=== PATIENT | female | born 2000 | race Caucasian/White ===

== ENCOUNTER 2021-01-18 10:19 | Emergency (ER) | payer OTHER ==
[~2021-01-18] VITALS: Ht 154.9 cm; Wt 63.5 kg
--- NOTE | 2021-01-18 10:52 | NUR ---
PT AMBULATORY TO ROOM FROM TRIAGE WITH UPRIGHT STEADY GAIT. PT CHANGED INTO GOWN. MONITORS IN PLACE. CALL LIGHT WITHIN REACH. MOM AT
[2021-01-18 11:38] LABS: MICROSCOPIC AUTO
[2021-01-18 11:40] LABS: BASOPHILS % (AUTO) 1 % (0-1); EOSINOPHILS % (AUTO) 1 % (1-7); LYMPHOCYTES % (AUTO) 36 % (22-44); MEAN CORPUSCULAR HEMOGLOBIN 29.7 pg (27.0-34.8); MEAN CORPUSCULAR HGB CONC 33.4 g/dL (32.4-35.8); MEAN PLATELET VOLUME 7.9 fL (7.4-10.4); MONOCYTES % (AUTO) 7 % (2-9); NEUTROPHILS % (AUTO) 56 % (42-75); PLATELET COUNT 370 x10^3/uL (130-400); RED BLOOD COUNT 4.62 x10^6/uL (3.82-5.3); RED CELL DISTRIBUTION WIDTH 14.1 % (9.6-15.2)
[2021-01-18 11:45] LABS: ALANINE AMINOTRANSFERASE 35 U/L (12-78); ALBUMIN 3.7 g/dL (3.4-5.0); ANION GAP 7 mmol/L (5-15); CALCIUM 8.8 mg/dL (8.5-10.1); CHLORIDE 109 mmol/L (98-107)
[2021-01-18 11:50] LABS: ALKALINE PHOSPHATASE 116 U/L (45-117); BILIRUBIN,TOTAL 0.7 mg/dL (0.2-1.0); CREATININE 0.62 mg/dL (0.55-1.02); TOTAL PROTEIN 7.4 g/dL (6.4-8.2)
--- NOTE | 2021-01-18 11:56 | NUR ---
TASK RN: PT TRANSPORTED TO XRAY.
[2021-01-18 12:45] VITALS: BP 128/70
--- NOTE | 2021-01-18 12:47 | NUR ---
PT TO CT
[2021-01-18] MEDS ORDERED: OMNIPAQUE 350 MG/ML, 100ML BOTTLE ONE (13:00)
[2021-01-18] MEDS ORDERED: SODIUM CHLORIDE FLUSH 10ML SYR IVF ONE (13:00)
--- NOTE | 2021-01-18 13:00 | NUR ---
PT BACK FROM CT, CONNECTED TO MONITORS. CALL LIGHT WITHIN REACH
--- NOTE | 2021-01-18 13:42 | NUR ---
Patient/Caregiver given discharge instructions and RX, they have confirmed that they understand the instructions. Patient ambulatory with steady gait.
== END 2021-01-18 13:54 | disposition home or self-care (01) ==
LOC: ED 13:48
DX: R10.11 Right upper quadrant pain (principal); R10.31 Right lower quadrant pain; R11.2 Nausea with vomiting, unspecified; Z90.49 Acquired absence of other specified parts of digestive tract
CPT/HCPCS: 36415; 74021; 74177; 76700; 80053; 81001; 84703; 85025; 87086; 99285; Q9967; 99284

== ENCOUNTER 2021-01-30 10:41 | Emergency (ER) | payer OTHER ==
[~2021-01-30] VITALS: Ht 154.9 cm; Wt 64.5 kg
--- NOTE | 2021-01-30 11:34 | NUR ---
TRACK MAN: PT TO ROOM FROM [facility]IC[facility] ROSSI. PT TO BR TO ATTEMPT TO PROVIDE URINE SPECIMAN.
--- NOTE | 2021-01-30 11:48 | NUR ---
PT PROVIDED URINE SAMPLE. UA ORDERED PER PROTOCOL AND SENT TO LAB.
[2021-01-30 12:06] LABS: MICROSCOPIC INDICATED
[2021-01-30] MEDS ORDERED: KETOROLAC 30 MG/1 ML ONE (12:13)
--- NOTE | 2021-01-30 12:16 | NUR ---
MEDS ADMIN PER SEP.
[2021-01-30] MEDS ORDERED: KETOROLAC 30 MG/1 ML IM ONE (12:30)
[2021-01-30 12:38] LABS: BASOPHILS % (AUTO) 0 % (0-1); EOSINOPHILS % (AUTO) 2 % (1-7); LYMPHOCYTES % (AUTO) 25 % (22-44); MEAN CORPUSCULAR HEMOGLOBIN 29.8 pg (27.0-34.8); MEAN CORPUSCULAR HGB CONC 33.5 g/dL (32.4-35.8); MEAN PLATELET VOLUME 7.7 fL (7.4-10.4); MONOCYTES % (AUTO) 5 % (2-9); NEUTROPHILS % (AUTO) 68 % (42-75); PLATELET COUNT 320 x10^3/uL (130-400); RED BLOOD COUNT 4.31 x10^6/uL (3.82-5.3); RED CELL DISTRIBUTION WIDTH 14.4 % (9.6-15.2)
[2021-01-30 12:50] LABS: ALBUMIN 3.4 g/dL (3.4-5.0); CALCIUM 8.3 mg/dL (8.5-10.1); CREATININE 0.52 mg/dL (0.55-1.02)
[2021-01-30 13:02] LABS: ANION GAP 4 mmol/L (5-15); CHLORIDE 109 mmol/L (98-107)
[2021-01-30 13:24] VITALS: BP 113/58
--- NOTE | 2021-01-30 14:05 | NUR ---
PER ERMD, ABX ORDERED IN ERROR. MED CHARTED NON-ADMIN.
[2021-01-30] MEDS ORDERED: CEFTRIAXONE 1,000 MG in DEXTROSE 5% 50 ML IVPB ONE (14:30)
== END 2021-01-30 14:23 | disposition home or self-care (01) ==
LOC: ED 11:07
DX: R10.30 Lower abdominal pain, unspecified (principal); R11.2 Nausea with vomiting, unspecified; Z90.49 Acquired absence of other specified parts of digestive tract
CPT/HCPCS: 36415; 76830; 80048; 81001; 82040; 84703; 85025; 87086; 96372; 99284; J1885